=== PATIENT | female | born 1995 | race Caucasian/White ===

== ENCOUNTER 2018-12-16 15:21 | Emergency (ER) | payer OTHER ==
[~2018-12-16] VITALS: Ht 152.4 cm; Wt 54.4 kg
[2018-12-16] MEDS ORDERED: AZITHROMYCIN 250 MG TABLET PO ONE (16:00)
[2018-12-16] MEDS ORDERED: CEFTRIAXONE 500 MG VIAL IM ONE (16:00)
[2018-12-16] MEDS ORDERED: AZITHROMYCIN 250 MG TABLET ONE (16:10)
[2018-12-16] MEDS ORDERED: CEFTRIAXONE 500 MG VIAL ONE (16:10)
[2018-12-16] MEDS ORDERED: LIDOCAINE /MPF 1% VIAL 5 ML VIAL ONE (16:14)
--- NOTE | 2018-12-16 16:15 | NUR ---
PELVIC CRAMPING, WITH DISCHARGE, AND FOUL ODOR X 1 WEEK. PT AAOX4, VSS. DENIES DIZZINESS, N/V AT THIS TIME. PT SEEN & EVAL'D BY ABNER LEE & WILL CONT TO MONITOR.
--- NOTE | 2018-12-16 16:27 | NUR ---
MEDICATED ORDERED, PT TIFFANY WELL.
[2018-12-16 16:45] LABS: APPEARANCE,URINE Clear (CLEAR); BILIRUBIN,URINE Negative (NEGATIVE); BLOOD, URINE Trace-intact Ery/uL (NEGATIVE); COLOR,URINE Yellow (YELLOW); KETONES,URINE 15 (NEGATIVE); LEUKOCYTE ESTERASE ,URINE Small (NEGATIVE); NITRITE, URINE Negative (NEGATIVE); PROTEIN,URINE Negative (NEGATIVE); UGLUCOSE Negative (NEGATIVE); UROBILINOGEN,URINE 0.2 EU/dL (0.2)
[2018-12-16 16:57] LABS: BACTERIA,URINE Few /HPF (None Seen); SQUAMOUS EPITHELIAL CELL,UR Few /HPF (None Seen)
--- NOTE | 2018-12-16 17:17 | NUR ---
Patient discharged to home in stable condition. Written and verbal after care instructions given. Patient verbalizes understanding of instruction.
[2018-12-16 17:18] VITALS: BP 130/80
== END 2018-12-16 17:19 ==
LOC: ER 15:24
DX: N89.8 Other specified noninflammatory disorders of vagina (principal); N39.0 Urinary tract infection, site not specified; F17.200 Nicotine dependence, unspecified, uncomplicated; Z20.2 Contact with and (suspected) exposure to infections with a predominantly sexual mode of transmission
CPT/HCPCS: 81001; 84703; 87086; 87110; 87210; 96372; 99283; A6402; J0696; J3490; 81000-TC

== ENCOUNTER 2018-12-19 21:51 | Emergency (ER) | payer OTHER ==
[~2018-12-19] VITALS: Ht 162.6 cm; Wt 56.7 kg
--- NOTE | 2018-12-19 22:30 | NUR ---
PT PRESENTED TO THE ER WITH A C/O PAIN AND BURNING WITH URINATION. PT STATED THAT SHE WAS HERE YESTERDAY AND TREATED FOR STD AND UTI. PT STARTED TAKING KEFLEX AND THEN SHE HAD THE PAIN AND BURNING WITH URINATION AND HEMATURIA. URINE SAMPLE WAS SENT TO LAB.
[2018-12-19 22:49] LABS: APPEARANCE,URINE Clear (CLEAR); BILIRUBIN,URINE Negative (NEGATIVE); BLOOD, URINE Large Ery/uL (NEGATIVE); COLOR,URINE Yellow (YELLOW); KETONES,URINE Negative (NEGATIVE); LEUKOCYTE ESTERASE ,URINE Trace (NEGATIVE); NITRITE, URINE Negative (NEGATIVE); PROTEIN,URINE Negative (NEGATIVE); UGLUCOSE Negative (NEGATIVE); UROBILINOGEN,URINE 0.2 EU/dL (0.2)
--- NOTE | 2018-12-19 23:06 | NUR ---
PELVIC SET UP AT THE BEDSIDE.
[2018-12-19 23:15] LABS: BACTERIA,URINE Few /HPF (None Seen); SQUAMOUS EPITHELIAL CELL,UR Few /HPF (None Seen); WBC,URINE 21-50 /HPF (0-3)
--- NOTE | 2018-12-19 23:39 | NUR ---
DR NICOLE IS IN THE ROOM FOR A PELVIC EXAM. LAMONT TAM IS THE Female corn cutter operator WHO accompanied female patient for PELVIC EXAM.
--- NOTE | 2018-12-19 23:55 | NUR ---
Patient discharged to home in stable condition. Written and verbal after care instructions given. Patient verbalizes understanding of instruction AND RX. PT AMBULATED OUT WITH A STEADY GAIT. PT TO F/U WITH PMD. VSS.
[2018-12-20 00:32] VITALS: BP 119/72
== END 2018-12-19 23:55 | disposition home or self-care (01) ==
LOC: ER 21:59
DX: N93.8 Other specified abnormal uterine and vaginal bleeding (principal); F90.9 Attention-deficit hyperactivity disorder, unspecified type; D64.9 Anemia, unspecified; F17.200 Nicotine dependence, unspecified, uncomplicated
CPT/HCPCS: 81000-TC; 84703-TC; 87086-TC